=== PATIENT | female | born 1980 | race Caucasian/White ===

== ENCOUNTER 2024-03-03 06:35 | Day surgery (SDC) | payer MEDICARE, MEDICAID ==
[2024-03-03] MEDS: Lactated Ringers 1,000 ML IV SCH (07:30)
[2024-03-03] MEDS ORDERED: Propofol 200 MG/20 ML SDV ONE (07:36)
[2024-03-03] MEDS ORDERED: fentaNYL 100 MCG/2 ML SDV ONE (07:36)
[2024-03-03] MEDS ORDERED: Midazolam 1 MG/ML 2 ML SDV ONE (07:36)
== END 2024-03-03 09:40 | disposition home or self-care (01) ==
LOC: JP.SDS 06:35
PROVIDERS: ATTEND Surgery
DX: K22.89 Other specified disease of esophagus (principal); K21.9 Gastro-esophageal reflux disease without esophagitis; Z15.09 Genetic susceptibility to other malignant neoplasm
CPT/HCPCS: 00813; 43239; 45378; 88305; J2250; J2704; J3010; J7120

== ENCOUNTER 2024-03-04 06:30 | Day surgery (SDC) | payer MEDICARE, MEDICAID ==
[2024-03-04] MEDS ORDERED: Midazolam 1 MG/ML 2 ML SDV ONE (06:57)
[2024-03-04] MEDS ORDERED: Propofol 200 MG/20 ML SDV ONE ×2 (06:57→08:13)
[2024-03-04] MEDS ORDERED: fentaNYL 50 MCG/ML SDV ONE (06:57)
[2024-03-04] MEDS: Lactated Ringers 1,000 ML IV SCH (07:35)
== END 2024-03-04 09:36 | disposition home or self-care (01) ==
LOC: JP.SDS 06:30
PROVIDERS: ATTEND Surgery
DX: D12.3 Benign neoplasm of transverse colon (principal); K21.9 Gastro-esophageal reflux disease without esophagitis
CPT/HCPCS: 00811; 45380; 45385; J2250; J2704; J3010; J7120; 88305